=== PATIENT | female | born 1965 | race Caucasian/White ===

== ENCOUNTER → 2024-03-06 | Outpatient (CLI) | payer BC, SELFPAY ==
[2024-03-06 14:34] LABS: Alanine Aminotransferase 16 U/L (10-49); Albumin, Serum 4.6 gm/dL (3.5-5.0); Alkaline Phosphatase 67 U/L (46-116); Aspartate Amino Transferase 17 U/L (0-34); Bilirubin,Direct < 0.1 mg/dL (0.0-0.3); Bilirubin,Total 0.2 mg/dL (0.3-1.2); Total Protein 6.7 gm/dL (5.7-8.2)
== END | disposition home or self-care (01) ==
PROVIDERS: PCP Nurse Practitioner Family; Referring Provider Nurse Practitioner Family; Visit Provider Nurse Practitioner Family
DX: B35.1 Tinea unguium (principal); Z13.89 Encounter for screening for other disorder
CPT/HCPCS: 36415; 80076

== ENCOUNTER → 2024-05-05 | Outpatient (CLI) | payer BC, SELFPAY ==
[2024-05-05 16:06] LABS: Alanine Aminotransferase 12 U/L (10-49); Albumin, Serum 4.2 gm/dL (3.5-5.0); Alkaline Phosphatase 78 U/L (46-116); Aspartate Amino Transferase < 8 U/L (0-34); Bilirubin,Direct < 0.1 mg/dL (0.0-0.3); Bilirubin,Total 0.2 mg/dL (0.3-1.2); Total Protein 6.3 gm/dL (5.7-8.2)
== END | disposition home or self-care (01) ==
LOC: COPL 15:06
PROVIDERS: PCP Nurse Practitioner Family; Referring Provider Nurse Practitioner Family; Visit Provider Nurse Practitioner Family
DX: E78.2 Mixed hyperlipidemia (principal)
CPT/HCPCS: 36415; 80076

== ENCOUNTER → 2024-12-19 | Outpatient (CLI) | payer BC, SELFPAY ==
[2024-12-19 09:04] LABS: Cardiac Risk Estimate 3.3 RATIO (3.7-5.6); Cholesterol 210 mg/dL (132-200); HDL Cholesterol 63 mg/dL (40-60); LDL Cholesterol,Calculated 134 mg/dL (0-130); Triglycerides 64 mg/dL (30-150)
== END | disposition home or self-care (01) ==
LOC: COPL 07:09
PROVIDERS: PCP Nurse Practitioner Family; Referring Provider Nurse Practitioner Family; Visit Provider Nurse Practitioner Family
DX: E78.5 Hyperlipidemia, unspecified (principal)
CPT/HCPCS: 36415; 80061